=== PATIENT | male | born 1955 | race Caucasian/White ===

== ENCOUNTER 2017-04-09 20:56 | Emergency (ER) | payer MEDICAID ==
[~2017-04-09] VITALS: Ht 182.9 cm; Wt 86.2 kg
[2017-04-09] MEDS ORDERED: HYDROcodone-ACET 5/325MG TAB PO ONE (21:30)
[2017-04-09] MEDS ORDERED: cloNIDine HCL 0.1 MG TAB PO ONE (21:30)
[2017-04-09 21:44] LABS: Basophils # (auto) 0 uL; Basophils % (auto) 0.7 % (0.0-2.0); CONDITION Y; DEFINITIVE SEE PRINTOUT; Eosinophils # (auto) 0.1 uL; Eosinophils % (auto) 1.5 % (0.0-7.0); Hematocrit 43.4 % (41.0-53.0); Hemoglobin 15.1 g/dL (13.5-17.5); Lymphocytes # (auto) 2.1 uL; Lymphocytes % (auto) 31.4 % (10.0-50.0); Mean Corpuscular Hemoglobin 37.8 pg (28.0-32.0); Mean Corpuscular Hgb Conc. 34.8 g/dL (32.0-36.0); Mean Corpuscular Volume 108.9 fL (80.0-100.0); Mean Platelet Volume 8.1 fL (7.4-10.4); Monocytes # (auto) 0.7 uL; Monocytes % (auto) 10.5 % (0.0-12.0); Neutrophils # (auto) 3.8 uL; Neutrophils % (auto) 55.9 % (37.0-80.0); Platelet Count (auto) 272 10^3/uL (140-450); Red Cell Distribution Width 13.2 % (11.6-16.0); White Blood Cell 6.8 10^3/uL (4.4-10.8)
[2017-04-09 22:04] LABS: Salicylate 3.4 mg/dL (2.8-20.0)
[2017-04-09 22:05] LABS: Albumin 3.6 g/dL (3.4-5.0); BUN/Creatinine Ratio 13.8; Calcium 8.9 mg/dL (8.5-10.1)
[2017-04-09 22:06] LABS: Acetaminophen < 2.0 ug/mL (10-30)
[2017-04-09 22:10] LABS: Urine RBC None Seen /hpf (0 - 3)
[2017-04-09 22:15] LABS: Urine Bilirubin Negative (Negative); Urine Blood Negative /uL (Negative); Urine Glucose Normal (Normal); Urine Ketone Negative (Negative); Urine Nitrite Negative (Negative); Urine Urobilinogen Normal (Negative); Urine pH 6.5 (5.0-8.0)
[2017-04-09 22:17] LABS: Urine Color Straw (Yellow)
[2017-04-09 22:32] LABS: Bilirubin, Total 0.4 mg/dL (0.2-1.0); Potassium 2.9 mmol/L (3.5-5.1); Total Protein 7.1 g/dL (6.4-8.2)
[2017-04-09] MEDS ORDERED: POTASSIUM CHL 10% (20 MEQ/15ML) ORAL SOLN PO ONE (23:00)
[2017-04-10] MEDS ORDERED: HYDROcodone-ACET 10/325MG TAB PO ONE ×2 (06:30→17:15)
[2017-04-11] MEDS ORDERED: HYDROcodone-ACET 10/325MG TAB PO ONE (01:00)
[2017-04-12] MEDS ORDERED: HYDROcodone-ACET 10/325MG TAB PO ONE
[2017-04-12] MEDS ORDERED: LISINOPRIL 20 MG TAB PO ONE ×2 (02:15→10:00)
[2017-04-12] MEDS ORDERED: HCTZ 25 MG TAB PO ONE ×3 (02:15→10:40)
[2017-04-12] MEDS ORDERED: TEMAZEPAM 15 MG CAP PO ONE (02:30)
[2017-04-12] MEDS ORDERED: TAMSULOSIN HYDROCHLORIDE 0.4 MG CAP PO ONE (02:30)
[2017-04-12] MEDS ORDERED: HCTZ 25 MG TAB PO SCH (10:40)
[2017-04-12] MEDS ORDERED: LISINOPRIL 20 MG TAB PO SCH (10:42)
[2017-04-12] MEDS ORDERED: HYDROcodone-ACET 10/325MG TAB PO PRN (10:45)
[2017-04-12] MEDS ORDERED: HCTZ 25 MG TAB ONE (10:58)
[2017-04-12] MEDS ORDERED: LISINOPRIL 20 MG TAB ONE (11:00)
[2017-04-13] MEDS ORDERED: HYDROcodone-ACET 10/325MG TAB ONE (00:43)
[2017-04-13 08:33] LABS: Albumin 3.9 g/dL (3.4-5.0); Potassium 3.1 mmol/L (3.5-5.1)
[2017-04-13 08:38] LABS: BUN/Creatinine Ratio 15.1
[2017-04-13 08:39] LABS: Bilirubin, Total 0.8 mg/dL (0.2-1.0); Total Protein 7.7 g/dL (6.4-8.2)
[2017-04-13] MEDS ORDERED: POTASSIUM CHL 20 Meq TABLET PO ONE ×2 (08:43→08:45)
[2017-04-13 09:27] VITALS: BP 142/103
== END 2017-04-13 09:45 | disposition home or self-care (01) ==
LOC: EDBD 20:56 → ER 21:01
DX: F41.9 Anxiety disorder, unspecified (principal); R45.851 Suicidal ideations; I10 Essential (primary) hypertension; F32.9 Major depressive disorder, single episode, unspecified; F17.210 Nicotine dependence, cigarettes, uncomplicated
CPT/HCPCS: 36415; 72110; 80053; 80307; 80320; 80329; 81001; 85025

== ENCOUNTER 2017-04-15 06:36 | Emergency (ER) | payer MEDICAID ==
[~2017-04-15] VITALS: Ht 182.9 cm; Wt 83.9 kg
[2017-04-15 07:19] VITALS: BP 138/99
[2017-04-15] MEDS ORDERED: KETOROLAC TROMETH 60MG/2ML VIAL IM ONE (07:45)
== END 2017-04-15 08:10 | disposition home or self-care (01) ==
LOC: ER 06:36
DX: G89.29 Other chronic pain (principal); M54.5 Low back pain; I10 Essential (primary) hypertension; F17.210 Nicotine dependence, cigarettes, uncomplicated
CPT/HCPCS: 96372; 99283; J1885